=== PATIENT | male | born 1955 | race Caucasian/White ===

== ENCOUNTER 2024-05-26 15:45 | Inpatient (IN) | payer OTHER ==
[~2024-05-26] VITALS: Ht 180.3 cm; Wt 90.0 kg
[2024-05-26 16:00] VITALS: BP_SYST 134; PULSE 67; RESP 16; TEMP 97.4; O2SAT 99
[2024-05-26 17:19] LABS: BILIRUBIN,DIRECT 2.4 mg/dL (0.0-0.3); CALCIUM 8.4 mg/dL (8.4-11.0); CREATININE 1.79 mg/dL (0.55-1.30); POTASSIUM 4.5 mmol/L (3.5-5.1); TOTAL BILIRUBIN 5.6 mg/dL (0.0-1.0); TOTAL PROTEIN, SERUM 5.8 g/dL (6.4-8.3)
[2024-05-26 17:41] LABS: HEMATOCRIT 25.4 % (36-54); HEMOGLOBIN 9.3 g/dL (14.0-18.0); MEAN CORPUSCULAR HEMOGLOBIN 39 pg (27-31); MEAN CORPUSCULAR HGB CONC 37 % (32-36); MEAN CORPUSCULAR VOLUME 106 fL (79.0-98.0); PLATELET COUNT (AUTO) 170 K/uL (130-430); RED BLOOD CELL COUNT(AUTO) 2.39 MIL/uL (4.2-6.2); RED CELL DISTRIBUTION WIDTH 18.8 % (9.0-15.0)
[2024-05-26 17:49] LABS: BILIRUBIN,URINE 1+ (NEGATIVE); BLOOD, URINE NEGATIVE (NEGATIVE); CLARITY/URINE CLEAR (CLEAR); GLUCOSE,URINE NEGATIVE (NEGATIVE); KETONES,URINE TRACE (NEGATIVE); LEUKOCYTE ESTERASE ,URINE NEGATIVE (NEGATIVE); NITRITE, URINE NEGATIVE (NEGATIVE); PROTEIN URINE NEGATIVE (NEGATIVE); UROBILINOGEN,URINE 0.2 (0.2-1.0)
[2024-05-26 18:03] LABS: COLOR,URINE ORANGE (YELLOW)
[2024-05-26 18:15] LABS: BACTERIA,URINE FEW /HPF (None Seen); FINE GRANULAR CASTS,URINE 0-10 /LPF (None Seen); MUCUS,URINE 1+ /LPF (None Seen); RBC,URINE NONE SEEN /HPF (0-3); WBC,URINE 0-3 /HPF (0-3)
[2024-05-26] MEDS ORDERED: RIFA550T5 PO (18:52)
[2024-05-26] MEDS ORDERED: SPIR50TA5 PO (18:52)
[2024-05-26] MEDS ORDERED: PRO40 PO (18:52)
[2024-05-26] MEDS ORDERED: FURO-149 PO (18:52)
[2024-05-26 18:58] LABS: BAND % (MANUAL) 5 % (0-6); BASOPHILS % (MANUAL) 0 % (0-2); EOSINOPHILS % (MANUAL) 12 % (0-7); LYMPHOCYTES % (MANUAL) 27 % (20-46); MONOCYTES % (MANUAL) 11 % (0-11); PLATELET ESTIMATE ADEQUATE (ADEQUATE)
[2024-05-26 18:59] LABS: ANISOCYTOSIS 1+; OVALOCYTES FEW; TARGET CELLS FEW; TEAR DROP CELLS FEW
[2024-05-26] MEDS ORDERED: PIPERACILLIN/TAZOBACTAM 3.375 GM/VIAL (ZOSYN) IV ONE (19:07)
[2024-05-26] MEDS: PIPERACILLIN/TAZO 3.375 GM in NS 50 ML IV ONE (19:13)
[2024-05-26] MEDS ORDERED: LevALBUTEROL HCL 1.25 MG/0.5 ML *CONC.* VIAL.NEB (XOPENEX CONC.) INH PRN (20:45)
[2024-05-26] MEDS ORDERED: cefTRIAXone 1 GM in D5W 50 ML IV SCH (22:00)
[2024-05-26 23:05] VITALS: BP_SYST 122; PULSE 77; RESP 18; TEMP 97.3; O2SAT 97
[2024-05-27] MEDS: cefTRIAXone 1 GM in D5W 50 ML IV SCH ×2 (04:16→22:21)
[2024-05-27] MEDS: cefTRIAXone 1 GM IVPB PREMIX 50 ML IV ONE (04:17)
[2024-05-27 04:29] VITALS: BP_SYST 122; PULSE 77; O2SAT 99
[2024-05-27 07:15] LABS: HEMATOCRIT 25.2 % (36-54); HEMOGLOBIN 8.8 g/dL (14.0-18.0); MEAN CORPUSCULAR HEMOGLOBIN 38 pg (27-31); MEAN CORPUSCULAR HGB CONC 35 % (32-36); MEAN CORPUSCULAR VOLUME 108 fL (79.0-98.0); PLATELET COUNT (AUTO) 185 K/uL (130-430); RED BLOOD CELL COUNT(AUTO) 2.33 MIL/uL (4.2-6.2); RED CELL DISTRIBUTION WIDTH 18.5 % (9.0-15.0); WHITE BLOOD COUNT (AUTO) 4.1 K/uL (4.8-10.8)
[2024-05-27 07:17] LABS: CALCIUM 8.2 mg/dL (8.4-11.0); CREATININE 1.64 mg/dL (0.55-1.30); POTASSIUM 4.2 mmol/L (3.5-5.1)
[2024-05-27 07:47] LABS: INR 1.7 (0.80-1.20); PROTHROMBIN TIME 17.5 SECS (9.5-12.5)
[2024-05-27 08:51] LABS: LYMPHOCYTES % (MANUAL) 20 % (20-46); MONOCYTES % (MANUAL) 17 % (0-11)
[2024-05-27 08:52] LABS: BASOPHILS % (MANUAL) 0 % (0-2)
[2024-05-27 08:53] LABS: ANISOCYTOSIS 1+; PLATELET ESTIMATE ADEQUATE (ADEQUATE); TARGET CELLS FEW
[2024-05-27 09:00] VITALS: BP_SYST 114; PULSE 80; RESP 19; TEMP 98; O2SAT 96
[2024-05-27 11:23] VITALS: O2SAT 99
[2024-05-27] MEDS: RIFAXIMIN 550 MG TABLET PO SCH (11:27)
[2024-05-27] MEDS: FUROSEMIDE 40 MG TABLET PO SCH (11:28)
[2024-05-27] MEDS: PANTOPRAZOLE SODIUM 40 MG TAB PO SCH (11:28)
[2024-05-27] MEDS: SPIRONOLACTONE 50 MG TABLET (ALDACTONE) PO SCH (11:29)
[2024-05-27] MEDS: LACTULOSE 20 GM/30 ML UDC PO ONE (14:02)
[2024-05-27 14:22] VITALS: BP_SYST 110; PULSE 65; RESP 20; TEMP 98.3; O2SAT 98
[2024-05-27] MEDS: ACETAMINOPHEN 325 MG TABLET PO PRN (14:22)
[2024-05-27 17:06] VITALS: BP_SYST 121; PULSE 65; RESP 18; TEMP 97.9; O2SAT 97
[2024-05-27 20:00] VITALS: BP_SYST 116; PULSE 67; RESP 18; TEMP 97.7; O2SAT 99
[2024-05-27] MEDS: LACTULOSE 20 GM/30 ML UDC PO SCH (22:21)
[2024-05-28 00:40] VITALS: BP_SYST 128; PULSE 73; RESP 18; TEMP 96.9; O2SAT 98
[2024-05-28 07:37] LABS: HEMATOCRIT 24.6 % (36-54); HEMOGLOBIN 8.6 g/dL (14.0-18.0); MEAN CORPUSCULAR HEMOGLOBIN 38 pg (27-31); MEAN CORPUSCULAR HGB CONC 35 % (32-36); MEAN CORPUSCULAR VOLUME 108 fL (79.0-98.0); PLATELET COUNT (AUTO) 177 K/uL (130-430); RED BLOOD CELL COUNT(AUTO) 2.28 MIL/uL (4.2-6.2); RED CELL DISTRIBUTION WIDTH 18.2 % (9.0-15.0); WHITE BLOOD COUNT (AUTO) 4.2 K/uL (4.8-10.8)
[2024-05-28 07:50] LABS: CALCIUM 8.5 mg/dL (8.4-11.0); CREATININE 1.51 mg/dL (0.55-1.30); POTASSIUM 4.2 mmol/L (3.5-5.1)
[2024-05-28 08:27] VITALS: BP_SYST 113; PULSE 69; RESP 24; TEMP 98.7; O2SAT 96
[2024-05-28 10:00] VITALS: O2SAT 95
[2024-05-28 11:06] LABS: EOSINOPHILS % (MANUAL) 23 % (0-7)
[2024-05-28 11:07] LABS: BASOPHILS % (MANUAL) 0 % (0-2); EOSINOPHILS % (MANUAL) 25 % (0-7); LYMPHOCYTES % (MANUAL) 26 % (20-46); MONOCYTES % (MANUAL) 10 % (0-11)
[2024-05-28 11:11] LABS: ANISOCYTOSIS 1+; OVALOCYTES FEW; PLATELET ESTIMATE ADEQUATE (ADEQUATE); TARGET CELLS FEW
[2024-05-28 12:07] VITALS: BP_SYST 124; PULSE 80; RESP 20; TEMP 98.6; O2SAT 97
[2024-05-28 16:24] VITALS: BP_SYST 91; BP_SYST 99; PULSE 67; RESP 18; TEMP 98.6; O2SAT 95
[2024-05-28 20:00] VITALS: BP_SYST 106; PULSE 75; RESP 18; TEMP 98.2; O2SAT 97
[2024-05-29] VITALS: BP_SYST 135; PULSE 80; RESP 16; TEMP 99; O2SAT 94
[2024-05-29 06:20] LABS: HEMATOCRIT 28.4 % (36-54); HEMOGLOBIN 9.7 g/dL (14.0-18.0); MEAN CORPUSCULAR HEMOGLOBIN 37 pg (27-31); MEAN CORPUSCULAR HGB CONC 34 % (32-36); MEAN CORPUSCULAR VOLUME 109 fL (79.0-98.0); PLATELET COUNT (AUTO) 201 K/uL (130-430); RED BLOOD CELL COUNT(AUTO) 2.62 MIL/uL (4.2-6.2); RED CELL DISTRIBUTION WIDTH 18.4 % (9.0-15.0); WHITE BLOOD COUNT (AUTO) 4.2 K/uL (4.8-10.8)
[2024-05-29 06:52] LABS: CALCIUM 8.8 mg/dL (8.4-11.0); CREATININE 1.66 mg/dL (0.55-1.30); POTASSIUM 4.5 mmol/L (3.5-5.1)
[2024-05-29 08:05] LABS: ATYPICAL LYMPHOCYTES % 4 % (0-0); BAND % (MANUAL) 1 % (0-6); BASOPHILS % (MANUAL) 0 % (0-2); EOSINOPHILS % (MANUAL) 6 % (0-7); LYMPHOCYTES % (MANUAL) 32 % (20-46); MONOCYTES % (MANUAL) 13 % (0-11)
[2024-05-29 08:06] LABS: ANISOCYTOSIS 1+; PLATELET ESTIMATE ADEQUATE (ADEQUATE); WBC MORPHOLOGY TOXIC VACUOLATION
[2024-05-29 08:07] LABS: OVALOCYTES FEW; TARGET CELLS FEW
[2024-05-29 08:48] VITALS: BP_SYST 130; PULSE 82; RESP 17; TEMP 98; O2SAT 98
[2024-05-29 10:00] VITALS: O2SAT 98
[2024-05-29 12:35] VITALS: BP_SYST 121; PULSE 83; RESP 16; TEMP 98.2; O2SAT 97
[2024-05-29 17:00] VITALS: BP_SYST 123; PULSE 77; RESP 18; TEMP 97.6; O2SAT 97
[2024-05-29] MEDS: D5/0.45 NS 1,000 ML IV SCH (17:46)
[2024-05-29] MEDS: MEGESTROL ACETATE 400 MG/10 ML UDC PO ONE (18:01)
[2024-05-29 20:00] VITALS: BP_SYST 128; PULSE 75; RESP 20; TEMP 98.4; O2SAT 97
[2024-05-29] MEDS: MEGESTROL ACETATE 400 MG/10 ML UDC PO SCH (22:38)
[2024-05-30] VITALS (8 sets, daily range): BP systolic 120–129; PULSE 70–83; RESP 17–20; TEMP 97.4–98.2; O2SAT 96–97
[2024-05-30 07:24] LABS: CALCIUM 8.5 mg/dL (8.4-11.0); POTASSIUM 3.7 mmol/L (3.5-5.1)
[2024-05-30 07:29] LABS: CREATININE 1.68 mg/dL (0.55-1.30)
[2024-05-30 07:45] LABS: BASOPHILS # (AUTO) 0.2 K/uL (0.0-0.2); BASOPHILS % (AUTO) 3.4 % (0.0-2.0); EOSINOPHILS # (AUTO) 0.7 K/uL (0.0-0.4); EOSINOPHILS % (AUTO) 15.6 % (0.0-4.0); HEMATOCRIT 22.9 % (36-54); LYMPHOCYTES # (AUTO) 1.5 K/uL (1.0-5.5); LYMPHOCYTES % (AUTO) 33.8 % (20.5-51.5); MEAN CORPUSCULAR HEMOGLOBIN 38 pg (27-31); MEAN CORPUSCULAR HGB CONC 35 % (32-36); MEAN CORPUSCULAR VOLUME 108 fL (79.0-98.0); MONOCYTES # (AUTO) 0.8 K/uL (0.0-1.0); MONOCYTES % (AUTO) 16.6 % (1.7-9.3); NEUTROPHILS # (AUTO) 1.4 K/uL (1.8-7.7); NEUTROPHILS % (AUTO) 30.6 % (40.0-70.0); RED BLOOD CELL COUNT(AUTO) 2.13 MIL/uL (4.2-6.2); RED CELL DISTRIBUTION WIDTH 18.4 % (9.0-15.0)
[2024-05-30 08:24] LABS: WHITE BLOOD COUNT (AUTO) 4.6 K/uL (4.8-10.8)
[2024-05-30 10:56] LABS: PLATELET COUNT (AUTO) 180 K/uL (130-430)
[2024-05-30] MEDS: LACTULOSE 20 GM/30 ML UDC PO SCH (20:40)
[2024-05-31] VITALS (8 sets, daily range): BP systolic 109–140; PULSE 76–89; RESP 16–20; TEMP 97.6–99.6; O2SAT 91–100
[2024-05-31 07:28] LABS: BASOPHILS # (AUTO) 0.1 K/uL (0.0-0.2); BASOPHILS % (AUTO) 1.5 % (0.0-2.0); EOSINOPHILS # (AUTO) 0.5 K/uL (0.0-0.4); HEMATOCRIT 23.2 % (36-54); LYMPHOCYTES # (AUTO) 1.3 K/uL (1.0-5.5); LYMPHOCYTES % (AUTO) 29.1 % (20.5-51.5); MEAN CORPUSCULAR HEMOGLOBIN 38 pg (27-31); MEAN CORPUSCULAR HGB CONC 35 % (32-36); MEAN CORPUSCULAR VOLUME 108 fL (79.0-98.0); MONOCYTES # (AUTO) 0.8 K/uL (0.0-1.0); NEUTROPHILS # (AUTO) 1.8 K/uL (1.8-7.7); NEUTROPHILS % (AUTO) 40.4 % (40.0-70.0); PLATELET COUNT (AUTO) 170 K/uL (130-430); RED BLOOD CELL COUNT(AUTO) 2.14 MIL/uL (4.2-6.2); WHITE BLOOD COUNT (AUTO) 4.5 K/uL (4.8-10.8)
[2024-05-31 07:56] LABS: INR 1.1 (0.80-1.20); PROTHROMBIN TIME 11.5 SECS (9.5-12.5)
[2024-05-31 08:16] LABS: ALBUMIN 1.7 g/dL (3.4-4.8); BILIRUBIN,DIRECT 2.2 mg/dL (0.0-0.3); CALCIUM 8.4 mg/dL (8.4-11.0); CREATININE 1.79 mg/dL (0.55-1.30); POTASSIUM 3.9 mmol/L (3.5-5.1); TOTAL BILIRUBIN 5.3 mg/dL (0.0-1.0); TOTAL PROTEIN, SERUM 5.1 g/dL (6.4-8.3)
[2024-05-31 17:31] LABS: APPEARANCE,SPUN,BODY FLUID CLEAR (CLEAR); BF APPEARANCE UNSPUN SLIGHTLY HAZY (CLEAR); BODY FLUID COLOR YELLOW (LT YELLOW); BODY FLUID SOURCE/ TYPE PARACENTESIS; BODY FLUID TOTAL VOLUME 5750 mL; SOURCE/TYPE ,BODY FLUID PARACENTESIS
[2024-05-31 22:30] LABS: BODY FLUID GLUCOSE 116 mg/dL; BODY FLUID TOTAL PROTEIN 0.2 g/dL
[2024-05-31 22:57] LABS: EOSINOPHIL, BODY FLUID 0 %; LYMPHOCYTES, BODY FLUID 49 %; MONOCYTES,BODY FLUID 46 %; NEUTROPHIL, BODY FLUID 5 %; RBC, BODY FLUID 580 /uL; WBC, BODY FLUID 130 /uL
[2024-06-01] VITALS (8 sets, daily range): BP systolic 110–119; PULSE 72–81; RESP 16–18; TEMP 98.1–99.1; O2SAT 96–99
[2024-06-01 07:20] LABS: HEMATOCRIT 23.2 % (36-54); HEMOGLOBIN 8.1 g/dL (14.0-18.0); MEAN CORPUSCULAR HEMOGLOBIN 38 pg (27-31); MEAN CORPUSCULAR HGB CONC 35 % (32-36); MEAN CORPUSCULAR VOLUME 108 fL (79.0-98.0); PLATELET COUNT (AUTO) 166 K/uL (130-430); RED BLOOD CELL COUNT(AUTO) 2.15 MIL/uL (4.2-6.2); WHITE BLOOD COUNT (AUTO) 4.7 K/uL (4.8-10.8)
[2024-06-01 07:40] LABS: CALCIUM 7.9 mg/dL (8.4-11.0); CREATININE 1.64 mg/dL (0.55-1.30); POTASSIUM 4.3 mmol/L (3.5-5.1)
[2024-06-01 12:11] LABS: BASOPHILS % (MANUAL) 0 % (0-2); EOSINOPHILS % (MANUAL) 17 % (0-7); LYMPHOCYTES % (MANUAL) 17 % (20-46); MONOCYTES % (MANUAL) 15 % (0-11)
[2024-06-01 12:13] LABS: ANISOCYTOSIS 1+; HOWELL-JOLLY BODIES FEW; OVALOCYTES FEW; PLATELET ESTIMATE ADEQUATE (ADEQUATE); TARGET CELLS FEW
[2024-06-02 01:33] VITALS: BP_SYST 104; PULSE 76; RESP 16; TEMP 98.3; O2SAT 96
[2024-06-02 08:15] VITALS: O2SAT 96
== END 2024-06-02 10:45 | DRG 432 ==
LOC: SED 15:45 → SMU 18:53
PROVIDERS: ADMIT Family Medicine; ATTEND Family Medicine
PROC: 0W9G3ZZ Drainage of Peritoneal Cavity, Percutaneous Approach (ICD-10-PCS; 2024-05-27)
PROC: 0W9G3ZZ Drainage of Peritoneal Cavity, Percutaneous Approach (ICD-10-PCS; principal; 2024-05-31)
DX: K74.60 Unspecified cirrhosis of liver (principal); G93.41 Metabolic encephalopathy; J15.69 Pneumonia due to other Gram-negative bacteria; E44.0 Moderate protein-calorie malnutrition; R18.8 Other ascites; E87.20 Acidosis, unspecified; D64.9 Anemia, unspecified; N18.9 Chronic kidney disease, unspecified; Z90.81 Acquired absence of spleen; Z79.899 Other long term (current) drug therapy; Z90.49 Acquired absence of other specified parts of digestive tract; Z68.27 Body mass index [BMI] 27.0-27.9, adult
CPT/HCPCS: 36415; 49083; 71045; 76700; 76705; 80048; 80076; 81000; 81001; 81015; 82042; 82140; 82947; 83605; 83735; 84157; 85007; 85025; 85027; 85610; 85730; 87040; 87070; 87081; 89051; 89060; 93005; 94070; 94760; 97110-GP; 97530-GP; 99285; J0696; J2543; J7060